=== PATIENT | male | born 1995 | race Caucasian/White ===

== ENCOUNTER 2017-01-01 11:28 | Emergency (ER) | payer OTHER, MEDICAID ==
[2017-01-01 12:30] LABS: CALCIUM 9.1 mg/dL (8.5-10.1); CARBON DIOXIDE 22.6 mmol/L (21-32); CHLORIDE SERUM 106 mmol/L (98-107); CREATININE SERUM 0.9 mg/dL (0.7-1.3); GFR1 > 60 mL/min; GLUCOSE SERUM 87 mg/dL (74-106); POTASSIUM SERUM 4.2 mmol/L (3.5-5.1); SODIUM SERUM 140 mmol/L (136-145)
[2017-01-01 12:57] VITALS: BP 116/70
== END 2017-01-01 12:57 | disposition home or self-care (01) ==
LOC: ED 11:28
PROVIDERS: Emergency Medicine
DX: K52.9 Noninfective gastroenteritis and colitis, unspecified (principal)
CPT/HCPCS: J1885

== ENCOUNTER 2017-07-26 08:11 | Emergency (ER) | payer MEDICAID ==
[2017-07-26 08:37] VITALS: BP 112/64
== END 2017-07-26 09:18 | disposition home or self-care (01) ==
LOC: ED 08:11
DX: J02.9 Acute pharyngitis, unspecified (principal)
CPT/HCPCS: J1100